=== PATIENT | male | born 1970 | race Caucasian/White ===

== ENCOUNTER 2023-12-16 15:15 | Outpatient (CLI) | payer OTHER | END 2023-12-16 15:16 | disposition home or self-care (01) | LOC: CSHMRI 15:15 | PROVIDERS: ATTEND Orthopaedic Surgery | DX: M25.511 Pain in right shoulder (principal); M75.111 Incomplete rotator cuff tear or rupture of right shoulder, not specified as traumatic; M62.511 Muscle wasting and atrophy, not elsewhere classified, right shoulder; M19.011 Primary osteoarthritis, right shoulder ==